=== PATIENT | male | born 1990 | race Two or more races ===

== ENCOUNTER 2017-07-18 10:23 | Emergency (ER) | payer MEDICAID ==
[~2017-07-18] VITALS: Ht 188 cm; Wt 99.8 kg
[2017-07-18 10:45] VITALS: BP 114/72
[2017-07-18] MEDS ORDERED: diphenhdrAMINE HCL 50 MG/1 ML VL IM ONE (12:15)
[2017-07-18] MEDS ORDERED: EPINEPHrine HCL 1 MG/1 ML AMP SC ONE (12:15)
== END 2017-07-18 12:45 | disposition home or self-care (01) ==
LOC: ER 10:23
DX: T78.40XA Allergy, unspecified, initial encounter (principal); X58.XXXA Exposure to other specified factors, initial encounter
CPT/HCPCS: 96372; 99284; J0171; J1200

== ENCOUNTER 2018-01-23 14:05 | Emergency (ER) | payer MEDICAID ==
[~2018-01-23] VITALS: Ht 188 cm; Wt 97.5 kg
[2018-01-23 15:41] LABS: Basophils # (auto) 0 uL; Basophils % (auto) 0.3 % (0.0-2.0); Eosinophils # (auto) 0.1 uL; Eosinophils % (auto) 0.7 % (0.0-7.0); Hematocrit 43.5 % (41.0-53.0); Hemoglobin 14.7 g/dL (13.5-17.5); Lymphocytes # (auto) 1.5 uL; Mean Corpuscular Hgb Conc. 33.7 g/dL (32.0-36.0); Mean Corpuscular Volume 94.9 fL (80.0-100.0); Monocytes # (auto) 0.4 uL; Monocytes % (auto) 5.3 % (0.0-12.0); Neutrophils # (auto) 6.2 uL; Neutrophils % (auto) 75.7 % (37.0-80.0); Nucleated Red Blood Cells % 0.1 %; Platelet Count (auto) 252 10^3/uL (140-450); Red Blood Cells 4.58 10^6/uL (4.5-5.90); Red Cell Distribution Width 13.7 % (11.8-14.3); White Blood Cell 8.2 10^3/uL (4.4-10.8)
[2018-01-23] MEDS ORDERED: SODIUM CHLORIDE 0.9% 1,000 ML IV ONE (15:52)
[2018-01-23 15:58] LABS: BUN/Creatinine Ratio 16.5; Bilirubin, Total 0.4 mg/dL (0.2-1.0); Calcium 8.6 mg/dL (8.5-10.1); Potassium 3.8 mmol/L (3.5-5.1); Total Protein 7.2 g/dL (6.4-8.2)
[2018-01-23] MEDS ORDERED: PROMETHAZINE HCL 25 MG/ML 1ML IV ONE (16:00)
[2018-01-23] MEDS ORDERED: KETOROLAC TROMETH 30 MG/ML 1ML VIAL IV ONE (16:00)
[2018-01-23 17:01] VITALS: BP 118/54
[2018-01-23 17:19] LABS: Urine Bacteria NONE SEEN /hpf (None Seen); Urine Blood Negative /uL (Negative); Urine Mucus FEW (None Seen); Urine Specific Gravity 1.029 (1.001-1.035); Urine WBC 1 /hpf (0 - 3)
[2018-01-23] MEDS ORDERED: DEXAMETHASONE SOD PHOS 4 MG/1ML SDV INJ IV ONE (17:45)
== END 2018-01-23 18:26 | disposition home or self-care (01) ==
LOC: ER 14:05
DX: M48.061 Spinal stenosis, lumbar region without neurogenic claudication (principal); M54.16 Radiculopathy, lumbar region; K21.9 Gastro-esophageal reflux disease without esophagitis
CPT/HCPCS: 36415; 72100; 72131; 80053; 81001; 83735; 85025; 93005; 96361; 96374; 96375; 99285; J1100; J1885; J2550; J7030

== ENCOUNTER 2018-01-30 13:08 | Emergency (ER) | payer MEDICAID ==
[~2018-01-30] VITALS: Ht 188 cm; Wt 96.6 kg
[2018-01-30 14:49] VITALS: BP 128/79
[2018-01-30] MEDS ORDERED: methylPREDNISolone SOD SUCC 125 MG/2 ML VL IM ONE (15:45)
[2018-01-30] MEDS ORDERED: KETOROLAC TROMETH 60MG/2ML VIAL IM ONE (15:45)
== END 2018-01-30 16:15 | disposition home or self-care (01) ==
LOC: ER 13:08
DX: M48.061 Spinal stenosis, lumbar region without neurogenic claudication (principal); M54.16 Radiculopathy, lumbar region; G89.29 Other chronic pain; R39.15 Urgency of urination; F41.9 Anxiety disorder, unspecified; F12.10 Cannabis abuse, uncomplicated; F14.10 Cocaine abuse, uncomplicated
CPT/HCPCS: 81002; 96372; 99284; J1885; J2930

== ENCOUNTER 2018-11-02 12:31 | Emergency (ER) | payer SELFPAY ==
[~2018-11-02] VITALS: Ht 188 cm; Wt 99.8 kg
[2018-11-02 12:45] VITALS: BP 132/78
[2018-11-02] MEDS ORDERED: KETOROLAC TROMETH 60MG/2ML VIAL IM ONE (19:45)
[2018-11-02] MEDS ORDERED: methylPREDNISolone SOD SUCC 125 MG/2 ML VL IM ONE (19:45)
== END 2018-11-02 20:06 | disposition home or self-care (01) ==
LOC: ER 12:31
DX: S43.401A Unspecified sprain of right shoulder joint, initial encounter (principal); K21.9 Gastro-esophageal reflux disease without esophagitis; W10.9XXA Fall (on) (from) unspecified stairs and steps, initial encounter; Y93.89 Activity, other specified; Y99.8 Other external cause status; Y92.89 Other specified places as the place of occurrence of the external cause; F12.10 Cannabis abuse, uncomplicated; F14.10 Cocaine abuse, uncomplicated
CPT/HCPCS: 71046; 96372; 99283; J1885; J2930

== ENCOUNTER 2022-08-03 14:21 | Emergency (ER) | payer MEDICAID ==
[~2022-08-03] VITALS: Ht 188 cm; Wt 100.0 kg
[2022-08-03 15:24] LABS: Basophils # (auto) 0.1 10 ^3/uL (0-0.2); Basophils % (auto) 0.8 % (0.0-2.0); Eosinophils # (auto) 0.4 10 ^3/uL (0-0.8); Eosinophils % (auto) 3.8 % (0.0-7.0); Hematocrit 41.9 % (41.0-53.0); Lymphocytes # (auto) 1.2 10 ^3/uL (0.4-5.4); Lymphocytes % (auto) 12.1 % (10.0-50.0); Mean Corpuscular Hemoglobin 30.9 pg (28.0-32.0); Mean Corpuscular Hgb Conc. 33.3 g/dL (32.0-36.0); Mean Corpuscular Volume 92.8 fL (80.0-100.0); Monocytes # (auto) 0.7 10 ^3/uL (0-1.3); Monocytes % (auto) 7.2 % (0.0-12.0); Neutrophils # (auto) 7.5 10 ^3/uL (1.6-8.6); Neutrophils % (auto) 76.1 % (37.0-80.0); Nucleated Red Blood Cells % 0.1 %; Red Blood Cells 4.52 10^6/uL (4.5-5.90); Red Cell Distribution Width 13.6 % (11.8-14.3); White Blood Cell 9.9 10^3/uL (4.4-10.8)
[2022-08-03 15:35] LABS: Albumin 3.6 g/dL (3.4-5.0); BUN/Creatinine Ratio 14.8; Calcium 8.7 mg/dL (8.5-10.1)
[2022-08-03 15:37] LABS: Bilirubin, Total 0.3 mg/dL (0.2-1.0); Total Protein 7.8 g/dL (6.4-8.2)
[2022-08-03 15:45] LABS: INR 0.92 (0.9-1.15); Partial Thromboplastin Time 28.3 sec (24.6-33.4)
[2022-08-03] MEDS ORDERED: APIX5TAB4 PO (18:18)
[2022-08-03 18:40] VITALS: BP 166/101
== END 2022-08-03 19:05 | disposition home or self-care (01) ==
LOC: ER 14:21
DX: I82.402 Acute embolism and thrombosis of unspecified deep veins of left lower extremity (principal); F12.10 Cannabis abuse, uncomplicated; F14.10 Cocaine abuse, uncomplicated
CPT/HCPCS: 36415; 80053; 85025; 85610; 85730; 93971